=== PATIENT | female | born 1940 | race Caucasian/White ===

== ENCOUNTER 2025-06-20 23:44 | Inpatient (IN) | payer MEDICARE, BC ==
[~2025-06-20] VITALS: Ht 154.9 cm; Wt 101.6 kg
[2025-06-21] VITALS (79 sets, daily range): BP systolic 71–150; BP diastolic 29–92; TEMP 97.8–98.2; O2SAT 92–100
[2025-06-21] MEDS: IPRATROPIUM NEB FS 0.5 MG/2.5 ML AMPUL.NEB NEB ONE (00:02)
[2025-06-21] MEDS: ALBUTEROL FS 2.5 MG/0.5 ML VIAL.NEB NEB ONE (00:02)
[2025-06-21] MEDS ORDERED: ALBUTEROL FS 2.5 MG/0.5 ML VIAL.NEB ONE (00:06)
[2025-06-21] MEDS ORDERED: IPRATROPIUM NEB FS 0.5 MG/2.5 ML AMPUL.NEB ONE (00:06)
[2025-06-21] MEDS ORDERED: ACETAMINOPHEN 325 MG TABLET ONE (00:11)
[2025-06-21] MEDS: IV NS 0.9% 500 ML BAG IV ONE (00:20)
[2025-06-21] MEDS: ACETAMINOPHEN 325 MG TABLET PO ONE (00:20)
[2025-06-21 00:32] LABS: PLATELET COUNT (AUTO) 233 K/uL (150-450); RED BLOOD CELL COUNT(AUTO) 4.06 MIL/uL (4.0-5.2); RED CELL DISTRIBUTION WIDTH 14.6 % (11.5-15.0); WHITE BLOOD COUNT (AUTO) 6.9 K/uL (4.3-11.0)
[2025-06-21 00:39] LABS: CALCIUM, SERUM 9.1 mg/dL (8.5-10.1); CREATININE 0.8 mg/dL (0.6-1.3); SODIUM SERUM 140 mmol/L (136-145); UREA NITROGEN, BLOOD 10 mg/dL (7-18)
[2025-06-21 00:49] LABS: LACTIC ACID 1.0 mmol/L (0.4-2.0)
[2025-06-21 00:51] LABS: INR 1.0 (0.91-1.10)
[2025-06-21 00:52] LABS: ASPARTATE AMINOTRANSFERASE 23 U/L (15-37); TOTAL PROTEIN, SERUM 6.3 g/dL (6.4-8.2)
[2025-06-21 01:15] LABS: APPEARANCE,URINE CLEAR (CLEAR); BLOOD, URINE 1+ Ery/uL (NEGATIVE); LEUKOCYTE ESTERASE ,URINE 3+ (NEGATIVE); NITRITE, URINE POSITIVE (NEGATIVE); UGLUCOSE NEGATIVE (NEGATIVE)
[2025-06-21 01:34] LABS: ADD URINE CULTURE YES; SQUAMOUS EPITHELIAL CELL,UR 0-2 /HPF (None Seen)
[2025-06-21] MEDS ORDERED: CEFTRIAXONE 1GM BAG (ER ONLY) 50 ML IV ONE (01:43)
[2025-06-21] MEDS: CEFTRIAXONE 1GM BAG (ER ONLY) 1 GM/50 ML PIGGYBACK IV ONE (01:46)
[2025-06-21 01:58] LABS: ABG BASE EXCESS 5.5 mmol/L (-2.0-3.0); ABG OXYGEN SATURATION 99.6 % (94.0-98.0); ABG PCO2 56.0 mmHg (32.0-45.0); ABG PH 7.377 (7.350-7.450); ABG PO2 368.1 mmHg (83.0-108.0); ABG TOTAL HEMOGLOBIN 13.4 G/dL (12.0-16.0); FLOW, BLOOD GAS 15.00 L/min (0.00-30.00); SITE, ABG RIGHT RADIAL
[2025-06-21] MEDS ORDERED: NOREPINEPHRINE 8MG/250ML RTU 250 ML IV ONE (02:16)
[2025-06-21] MEDS: NOREPINEPHRINE 8 MG in IV NS 0.9% 242 ML IV PRN (02:25)
[2025-06-21] MEDS ORDERED: NOREPINEPHRINE 8 MG in IV NS 0.9% 242 ML IV PRN (02:30)
[2025-06-21] MEDS ORDERED: ONDANSETRON HCL/PF 4 MG/2 ML VIAL IVP PRN (03:00)
[2025-06-21] MEDS ORDERED: MAGNESIUM HYDROXIDE 30 ML UDC PO PRN (03:00)
[2025-06-21] MEDS ORDERED: MAG HYDROX/AL HYDROX/SIMETH 30 ML UDC PO PRN (03:00)
[2025-06-21] MEDS ORDERED: ACETAMINOPHEN 650 MG/SUPP.RECT RC PRN (03:00)
[2025-06-21] MEDS ORDERED: FUROSEMIDE 20 MG/2 ML VIAL ONE (03:20)
[2025-06-21] MEDS: FUROSEMIDE 20 MG/2 ML VIAL IV ONE (03:21)
[2025-06-21] MEDS ORDERED: IPRATROPIUM NEB FS 0.5 MG/2.5 ML AMPUL.NEB NEB SCH (03:30)
[2025-06-21] MEDS ORDERED: ALPR0.255 PO (03:58)
[2025-06-21] MEDS ORDERED: LOSA100T31 PO (03:58)
[2025-06-21] MEDS ORDERED: TRAZ-257 PO (03:58)
[2025-06-21] MEDS ORDERED: NYST15CR TP (03:58)
[2025-06-21] MEDS ORDERED: CARV3.122 PO (03:58)
[2025-06-21] MEDS ORDERED: POTA20TA83 PO (03:58)
[2025-06-21] MEDS ORDERED: LEVO150T8 PO (03:58)
[2025-06-21] MEDS ORDERED: DONE10TA44 PO (03:58)
[2025-06-21] MEDS ORDERED: BUSP5TAB3 PO (03:58)
[2025-06-21] MEDS ORDERED: METH1TAB69 PO (03:58)
[2025-06-21] MEDS: ENOXAPARIN SODIUM 40 MG/0.4 ML DISP.SYRIN SQ ONE (04:48)
[2025-06-21 05:06] LABS: PLATELET COUNT (AUTO) 286 K/uL (150-450); RED BLOOD CELL COUNT(AUTO) 4.44 MIL/uL (4.0-5.2); RED CELL DISTRIBUTION WIDTH 14.8 % (11.5-15.0); WHITE BLOOD COUNT (AUTO) 12.0 K/uL (4.3-11.0)
[2025-06-21 05:15] LABS: CALCIUM, SERUM 9.6 mg/dL (8.5-10.1); CREATININE 1.0 mg/dL (0.6-1.3); PHOSPHORUS 3.8 mg/dL (2.5-4.9); SODIUM SERUM 139.0 mmol/L (136-145); UREA NITROGEN, BLOOD 11.0 mg/dL (7-18)
[2025-06-21] MEDS: IPRATROPIUM NEB FS 0.5 MG/2.5 ML AMPUL.NEB NEB SCH (08:16)
[2025-06-21] MEDS: PANTOPRAZOLE 40 MG VIAL IV SCH (08:24)
[2025-06-21] MEDS: ENOXAPARIN SODIUM 40 MG/0.4 ML DISP.SYRIN SQ SCH (08:26)
[2025-06-21] MEDS: POTASSIUM CL. PREMIX PERIPHER. 50 ML IV SCH (09:58)
[2025-06-21] MEDS: IV NS 0.9% 250 ML IV PRN (10:20)
[2025-06-21] MEDS: DOBUTamine 500 MG in IV D5W 210 ML IV SCH (11:01)
[2025-06-21] MEDS: CARVEDILOL 3.125 MG TABLET PO SCH (17:00)
[2025-06-21] MEDS: ALPRAZOLAM 0.25 MG TABLET PO PRN (17:11)
[2025-06-21] MEDS: ACETAMINOPHEN ES 500 MG TABLET PO PRN (18:38)
[2025-06-21] MEDS: CEFTRIAXONE 1 G in IV D5W 50 ML IV SCH (21:25)
[2025-06-21] MEDS: ENOXAPARIN SODIUM 100 MG/ML DISP.SYRIN SQ SCH (21:26)
[2025-06-22] VITALS (59 sets, daily range): BP systolic 87–125; BP diastolic 34–82; TEMP 97.8–98.4; O2SAT 93–100
[2025-06-22 04:47] LABS: PLATELET COUNT (AUTO) 342 K/uL (150-450); RED BLOOD CELL COUNT(AUTO) 4.08 MIL/uL (4.0-5.2); RED CELL DISTRIBUTION WIDTH 14.9 % (11.5-15.0); WHITE BLOOD COUNT (AUTO) 12.1 K/uL (4.3-11.0)
[2025-06-22 05:15] LABS: CALCIUM, SERUM 9.8 mg/dL (8.5-10.1); CREATININE 1.2 mg/dL (0.6-1.3); PHOSPHORUS 3.2 mg/dL (2.5-4.9); SODIUM SERUM 142 mmol/L (136-145); UREA NITROGEN, BLOOD 25 mg/dL (7-18)
[2025-06-22] MEDS: DULOXETINE HCL 30 MG CAPSULE.DR PO SCH (08:38)
[2025-06-22] MEDS: DONEPEZIL 5 MG TABLET PO SCH (08:38)
[2025-06-22] MEDS: LEVOTHYROXINE SODIUM 75 MCG TABLET PO SCH (08:38)
[2025-06-22] MEDS ORDERED: ENOXAPARIN SODIUM 40 MG/0.4 ML DISP.SYRIN SQ SCH (09:00)
[2025-06-22] MEDS ORDERED: METHENAMINE HIPPURATE PO SCH (09:00)
[2025-06-22] MEDS: ENOXAPARIN SODIUM 100 MG/ML DISP.SYRIN SQ SCH (20:04)
[2025-06-23] VITALS (18 sets, daily range): BP systolic 117–135; BP diastolic 62–91; TEMP 97.9–98.6; O2SAT 93–98
[2025-06-23 08:23] LABS: PLATELET COUNT (AUTO) 304 K/uL (150-450); RED BLOOD CELL COUNT(AUTO) 3.98 MIL/uL (4.0-5.2); RED CELL DISTRIBUTION WIDTH 14.7 % (11.5-15.0); WHITE BLOOD COUNT (AUTO) 13.1 K/uL (4.3-11.0)
[2025-06-23] MEDS: PANTOPRAZOLE 40 MG TABLET.DR PO SCH (09:11)
[2025-06-23 09:23] LABS: ASPARTATE AMINOTRANSFERASE 25.0 U/L (15-37); CALCIUM, SERUM 9.3 mg/dL (8.5-10.1); CREATININE 0.8 mg/dL (0.6-1.3); SODIUM SERUM 136.0 mmol/L (136-145); TOTAL PROTEIN, SERUM 6.3 g/dL (6.4-8.2); UREA NITROGEN, BLOOD 35.0 mg/dL (7-18)
[2025-06-23] MEDS: ENOXAPARIN SODIUM 40 MG/0.4 ML DISP.SYRIN SQ SCH (09:39)
[2025-06-23] MEDS: GUAIFENESIN/D-METHORPHAN HB 5 ML UDC PO PRN (15:45)
[2025-06-23 15:49] LABS: ABG BASE EXCESS 6.4 mmol/L (-2.0-3.0); ABG OXYGEN SATURATION 96.9 % (94.0-98.0); ABG PCO2 50.5 mmHg (32.0-45.0); ABG PH 7.421 (7.350-7.450); ABG PO2 91.4 mmHg (83.0-108.0); ABG TOTAL HEMOGLOBIN 13.0 G/dL (12.0-16.0); FLOW, BLOOD GAS 4.00 L/min (0.00-30.00); SITE, ABG RIGHT RADIAL
[2025-06-24] VITALS (15 sets, daily range): BP systolic 112–144; BP diastolic 59–81; TEMP 97.3–98.4; O2SAT 86–98
[2025-06-24 06:57] LABS: CALCIUM, SERUM 9.7 mg/dL (8.5-10.1); CREATININE 0.7 mg/dL (0.6-1.3); PHOSPHORUS 3.2 mg/dL (2.5-4.9); PLATELET COUNT (AUTO) 322 K/uL (150-450); RED BLOOD CELL COUNT(AUTO) 4.07 MIL/uL (4.0-5.2); RED CELL DISTRIBUTION WIDTH 14.2 % (11.5-15.0); SODIUM SERUM 137.0 mmol/L (136-145); UREA NITROGEN, BLOOD 26.0 mg/dL (7-18); WHITE BLOOD COUNT (AUTO) 11.2 K/uL (4.3-11.0)
[2025-06-24] MEDS: TRAZODONE 50 MG TABLET PO PRN (23:50)
[2025-06-25] VITALS (16 sets, daily range): BP systolic 110–148; BP diastolic 56–112; TEMP 97.3–98.6; O2SAT 93–98
[2025-06-25 07:29] LABS: PLATELET COUNT (AUTO) 337 K/uL (150-450); RED BLOOD CELL COUNT(AUTO) 3.89 MIL/uL (4.0-5.2); RED CELL DISTRIBUTION WIDTH 14.3 % (11.5-15.0); WHITE BLOOD COUNT (AUTO) 9.3 K/uL (4.3-11.0)
[2025-06-25 07:43] LABS: ASPARTATE AMINOTRANSFERASE 15.0 U/L (15-37); CALCIUM, SERUM 9.3 mg/dL (8.5-10.1); CREATININE 0.7 mg/dL (0.6-1.3); PHOSPHORUS 3.5 mg/dL (2.5-4.9); SODIUM SERUM 139.0 mmol/L (136-145); TOTAL PROTEIN, SERUM 6.0 g/dL (6.4-8.2); UREA NITROGEN, BLOOD 29.0 mg/dL (7-18)
[2025-06-25 10:14] LABS: ABG BASE EXCESS 7.3 mmol/L (-2.0-3.0); ABG OXYGEN SATURATION 94.7 % (94.0-98.0); ABG PCO2 55.1 mmHg (32.0-45.0); ABG PH 7.404 (7.350-7.450); ABG PO2 76.4 mmHg (83.0-108.0); ABG TOTAL HEMOGLOBIN 13.5 G/dL (12.0-16.0); FLOW, BLOOD GAS 3.00 L/min (0.00-30.00); FRACTIONATED INSPIRED OXYGEN 32.0 %; SITE, ABG LEFT RADIAL
[2025-06-25] MEDS: ALPRAZOLAM 0.25 MG TABLET PO PRN (17:37)
[2025-06-25] MEDS: ALPRAZOLAM 0.5 MG TABLET PO SCH (21:15)
[2025-06-26] VITALS (11 sets, daily range): BP systolic 119–124; BP diastolic 62–100; TEMP 97.3–98.1; O2SAT 94–98
[2025-06-27] VITALS (12 sets, daily range): BP systolic 112–120; BP diastolic 51–75; TEMP 97.1–97.7; O2SAT 92–99
[2025-06-28] VITALS (12 sets, daily range): BP systolic 107–133; BP diastolic 46–62; TEMP 97.3–97.7; O2SAT 93–99
[2025-06-28 07:54] LABS: CALCIUM, SERUM 9.0 mg/dL (8.5-10.1); CREATININE 0.6 mg/dL (0.6-1.3); SODIUM SERUM 141.0 mmol/L (136-145); UREA NITROGEN, BLOOD 19.0 mg/dL (7-18)
[2025-06-28] MEDS ORDERED: Z GUARD REMEDY 4 OZ OINT TP PRN (17:30)
[2025-06-29] VITALS (9 sets, daily range): BP systolic 111–113; BP diastolic 46–64; TEMP 98.2–98.4; O2SAT 92–99
[2025-06-29] MEDS: ENSURE ENLIVE 237 ML LIQUID (VANILLA) PO SCH (08:19)
[2025-06-30] VITALS (9 sets, daily range): BP systolic 104–132; BP diastolic 54–65; TEMP 98.2–98.4; O2SAT 92–96
[2025-06-30 17:13] LABS: APPEARANCE,URINE CLEAR (CLEAR); BLOOD, URINE TRACE-INTA Ery/uL (NEGATIVE); LEUKOCYTE ESTERASE ,URINE 3+ (NEGATIVE); NITRITE, URINE NEGATIVE (NEGATIVE); UGLUCOSE NEGATIVE (NEGATIVE)
[2025-06-30 17:40] LABS: ADD URINE CULTURE YES; SQUAMOUS EPITHELIAL CELL,UR Few /HPF (None Seen)
[2025-06-30 17:41] LABS: YEAST,URINE Few /HPF (None Seen)
== END 2025-06-30 18:45 | DRG 871 ==
LOC: ER 23:46 → ICU 06-21 03:04 → TELE 06-22 22:53 → MED 06-25 19:13
PROVIDERS: ATTEND Nurse Practitioner Acute Care
DX: A41.9 Sepsis, unspecified organism (principal); G93.41 Metabolic encephalopathy; I21.4 Non-ST elevation (NSTEMI) myocardial infarction; J96.01 Acute respiratory failure with hypoxia; J96.02 Acute respiratory failure with hypercapnia; R65.21 Severe sepsis with septic shock; I50.43 Acute on chronic combined systolic (congestive) and diastolic (congestive) heart failure; I42.8 Other cardiomyopathies; N39.0 Urinary tract infection, site not specified; B96.20 Unspecified Escherichia coli [E. coli] as the cause of diseases classified elsewhere; B96.89 Other specified bacterial agents as the cause of diseases classified elsewhere; J44.1 Chronic obstructive pulmonary disease with (acute) exacerbation; E66.2 Morbid (severe) obesity with alveolar hypoventilation; I13.0 Hypertensive heart and chronic kidney disease with heart failure and stage 1 through stage 4 chronic kidney disease, or unspecified chronic kidney disease; F02.80 Dementia in other diseases classified elsewhere, unspecified severity, without behavioral disturbance, psychotic disturbance, mood disturbance, and anxiety; E03.9 Hypothyroidism, unspecified; N18.9 Chronic kidney disease, unspecified; Z68.41 Body mass index [BMI] 40.0-44.9, adult; E87.29 Other acidosis; Z66 Do not resuscitate; Z20.822 Contact with and (suspected) exposure to COVID-19; G30.9 Alzheimer's disease, unspecified; E78.5 Hyperlipidemia, unspecified; Z79.890 Hormone replacement therapy; Z79.899 Other long term (current) drug therapy; K44.9 Diaphragmatic hernia without obstruction or gangrene; E87.6 Hypokalemia
CPT/HCPCS: 31720; 36415; 36600; 71045-TC; 71250-TC; 80048-TC; 80053-TC; 80076-TC; 81001; 82803-TC; 83605-TC; 83735-TC; 83880; 84100-TC; 84484-TC; 85025-TC; 85730-TC; 87040-TC; 87081-TC; 87086-TC; 87186-TC; 92526; 92611; 93307-TC; 94660; 94760-TC; 94799-TC; 97110-TC; 97116-TC; 97530-TC; 97535-TC; A4223; A6253; G0378; J0696; J1250; J1650; J1938; J2470; J2919; J3480; J7040; J7050; J7060